=== PATIENT | female | born 1965 | race Caucasian/White ===

== ENCOUNTER 2017-08-24 17:35 | Emergency (ER) | payer BC ==
--- NOTE | 2017-08-24 19:02 | UC ---
FLU HPI - HPI Summary HPI Summary: fevers, chills, cough body aches - History of Current Complaint Stated Complaint: FEVER, ACHES, COUGH Time Seen by Provider: 08/24/17 18:56 Hx Obtained From: Patient Hx Last Menstrual Period: 09/29/15 ?: No Onset/Duration: Sudden Onset, Lasting Days - 1, Still Present Severity Currently: Moderate Severity Initially: Moderate Associated Signs & Symptoms: Positive: Fever, Myalgia, Cough, Headache - Allergy/Home Medications Allergies/Adverse Reactions: Allergies Allergy/AdvReac Type Severity Reaction Status Date / Time Erythromycin Allergy Unknown Verified 08/24/17 18:54 [Erythromycin] Reaction Details Home Medications: Home Medications Acetaminophen TAB* [Tylenol TAB*] 650 mg PO Q4H PRN 08/24/17 [History Confirmed 08/24/17] Albuterol HFA INHALER* [Ventolin HFA Inhaler*] 2 puff INH Q6H PRN 08/24/17 [ History Confirmed 08/24/17] Amlodipine Besylate [Norvasc 2.5 mg tab] 2.5 mg PO DAILY 08/24/17 [History Confirmed 08/24/17] PMH/Surg Hx/FS Hx/Imm Hx Previously Healthy: No Cardiovascular History: Hypertension Psychological History: Depression - Surgical History Surgical History: Yes Surgery Procedure, Year, and Place: C-Sections, 1991 1995. Right Fallopian Tube Removed, 1993 - Family History Known Family History: Positive: None - Social History Occupation: Employed Full-time Lives: With Family Alcohol Use: 3-4 drinks once a week Substance Use Type: None Smoking Status (MU): Never Smoked Tobacco - Immunization History Most Recent Influenza Vaccination: 04/13/14 Most Recent Tetanus Shot: 04/21/14 Review of Systems Constitutional: Fever, Chills, Fatigue Skin: Negative Eyes: Negative ENT: Ear Ache, Nasal Discharge Respiratory: Cough Cardiovascular: Negative Gastrointestinal: Negative Genitourinary: Negative Motor: Negative Neurovascular: Negative Musculoskeletal: Arthralgia, Myalgia Neurological: Negative Psychological: Negative Is Patient Immunocompromised?: No All Other Systems Reviewed And Are Negative: Yes Physical Exam Triage Information Reviewed: Yes Appearance: Well-Nourished, Ill-Appearing - mild, Pain Distress - mild Vital Signs Reviewed: Yes Eye Exam: Normal Eyes: Positive: Conjunctiva Clear ENT Exam: Normal ENT: Positive: Normal ENT inspection, Hearing grossly normal, Pharynx normal, TMs normal, Uvula midline. Negative: Nasal congestion, Nasal drainage, Tonsillar swelling, Tonsillar exudate, Trismus, Muffled voice, Hoarse voice, Sinus tenderness Dental Exam: Normal Neck exam: Normal Neck: Positive: Supple, Nontender, No Lymphadenopathy Respiratory Exam: Normal Respiratory: Positive: Chest non-tender, Lungs clear, Normal breath sounds, No respiratory distress, No accessory muscle use Cardiovascular Exam: Normal Cardiovascular: Positive: RRR, No Murmur, Pulses Normal, Brisk Capillary Refill Abdominal Exam: Normal Abdomen Description: Positive: Nontender, No Organomegaly, Soft. Negative: CVA Tenderness (R), CVA Tenderness (L) Bowel Sounds: Positive: Present Musculoskeletal Exam: Normal Musculoskeletal: Positive: Strength Intact, ROM Intact, No Edema Neurological Exam: Normal Neurological: Positive: Alert, Muscle Tone Normal Psychological Exam: Normal Psychological: Positive: Normal Response To Family, Age Appropriate Behavior Skin Exam: Normal Diagnostics - Radiology No standard instances Xray Interpretation: No Acute Changes Radiology Interpretation Completed By: ED Physician, Radiologist - EKG Cardiac Rate: Tachycardia Cardiac Rhythm: Sinus: Normal Ectopy: PVCs - 1 ST Segment: Normal Flu Course/Dx - Course Course Of Treatment: rest increase fluids, tylenol, ibuprofen follow with pcp, to ed should symptoms worsen - Differential Dx/Diagnosis Provider Diagnoses: Viral syndrome Discharge - Discharge Plan Condition: Stable Disposition: HOME Prescriptions: Benzonatate CAP* [Tessalon 100 MG CAP*] 100 - 200 mg PO TID PRN #40 cap PRN Reason: Cough guaiFENesin/CODIEN 100MG-10MG* [Robitussin AC 100Mg-10Mg*] 5 - 10 ml PO Q4H PRN #120 udc MDD 40 PRN Reason: cough Patient Education Materials: Viral Syndrome (ED), Hypertension (ED), Acute Cough (ED) Forms: *Work Release Referrals: Oneida Zabala MD [Primary Care Provider] - 1 Week
--- NOTE | 2017-08-24 19:40 | RAD ---
HISTORY: Cough, fever, shortness of breath, tachycardia COMPARISONS: April 28, 2016 VIEWS: 4: Frontal dual-energy and lateral views of the chest. FINDINGS: CARDIOMEDIASTINAL SILHOUETTE: The cardiomediastinal silhouette is normal. ELOISA: The eloisa are normal. PLEURA: The costophrenic angles are sharp. No pleural abnormalities are noted. LUNG PARENCHYMA: The lungs are clear. ABDOMEN: The upper abdomen is clear. There is no subphrenic gas. BONES AND SOFT TISSUES: Degenerative changes are noted. OTHER: None. IMPRESSION: NO ACTIVE CARDIOPULMONARY DISEASE.
[2017-08-24 19:44] VITALS: BP 148/97
== END 2017-08-24 20:01 | disposition home or self-care (01) ==
LOC: UCCORT 17:35
DX: B34.9 Viral infection, unspecified (principal); R00.0 Tachycardia, unspecified; I10 Essential (primary) hypertension; F32.9 Major depressive disorder, single episode, unspecified; Z88.1 Allergy status to other antibiotic agents
CPT/HCPCS: 71046; 87502; 93005; 99212; G0463

== ENCOUNTER 2018-08-05 15:13 | Emergency (ER) | payer BC ==
[2018-08-05 15:57] VITALS: BP 165/89
--- NOTE | 2018-08-05 16:08 | UC ---
Eye Complaint HPI - HPI Summary HPI Summary: 53-year-old woman comes in with chief complaint of bilateral eye irritation and discharge and redness. Patient woke up this morning. She has had some upper respiratory tract infection symptoms for several days. He was also playing with her dogs last evening. She does not wear contacts or glasses. Denies any concern of any foreign body. Has not been welding. Cool compresses decrease the irritation. The discharge is white/yellow and her sclera are injected. - History of Current Complaint Chief Complaint: UCEye Stated Complaint: BILATERAL EYE COMPLAINT Time Seen by Provider: 08/05/18 16:01 Hx Last Menstrual Period: 09/29/15 Pain Intensity: 0 - Allergies/Home Medications Allergies/Adverse Reactions: Allergies Allergy/AdvReac Type Severity Reaction Status Date / Time erythromycin base Allergy Nausea And Verified 08/05/18 15:55 Vomiting PMH/Surg Hx/FS Hx/Imm Hx Previously Healthy: Yes Cardiovascular History: Hypertension Respiratory History: Asthma - Surgical History Surgical History: Yes Surgery Procedure, Year, and Place: C-Sections, 1991 1995. Right Fallopian Tube Removed, 1993 - Family History Known Family History: Positive: None - Social History Alcohol Use: Occasionally Substance Use Type: None Smoking Status (MU): Never Smoked Tobacco - Immunization History Most Recent Influenza Vaccination: 04/13/14 Most Recent Tetanus Shot: 04/21/14 Review of Systems All Other Systems Reviewed And Are Negative: Yes Constitutional: Positive: Negative Skin: Positive: Negative Eyes: Positive: Drainage, Eye Redness ENT: Positive: Nasal Discharge, Sinus Congestion Respiratory: Positive: Negative Cardiovascular: Positive: Negative Gastrointestinal: Positive: Negative Motor: Positive: Negative Neurovascular: Positive: Negative Musculoskeletal: Positive: Negative Neurological: Positive: Negative Psychological: Positive: Negative Is Patient Immunocompromised?: No Physical Exam Triage Information Reviewed: Yes Appearance: Well-Appearing, No Pain Distress, Well-Nourished Vital Signs: Initial Vital Signs Temp 98.2 F 08/05/18 15:56 Pulse 102 08/05/18 15:56 Resp 16 08/05/18 15:56 BP 165/89 08/05/18 15:56 Pulse Ox 100 08/05/18 15:56 Vital Signs Reviewed: Yes Eyes: Positive: Conjunctiva Inflamed, Discharge ENT: Positive: Pharynx normal, Nasal drainage, TMs normal Neck exam: Normal Neck: Positive: Supple Respiratory: Positive: Lungs clear, Normal breath sounds, No respiratory distress Cardiovascular: Positive: RRR Musculoskeletal Exam: Normal Musculoskeletal: Positive: Strength Intact, ROM Intact Neurological Exam: Normal Neurological: Positive: Alert, Muscle Tone Normal Psychological Exam: Normal Psychological: Positive: Normal Response To Family, Age Appropriate Behavior Skin Exam: Normal Eye Complaint Course/Dx - Differential Dx/Diagnosis Provider Diagnosis: Conjunctivitis Discharge - Sign-Out/Discharge Documenting (check all that apply): Patient Departure All imaging exams completed and their final reports reviewed: No Studies - Discharge Plan Condition: Stable Disposition: HOME Prescriptions: Tobramycin 0.3% OPHTH.FANY* 1 drop BOTH EYES Q4H #1 btl Patient Education Materials: Conjunctivitis (ED) Referrals: Oneida Zabala MD [Primary Care Provider] - Additional Instructions: FOLLOW UP WITH OPHTHALMOLOGY IF NOT COMPLETELY IMPROVED. GET RECHECKED FOR ANY WORSENING OF YOUR CONDITION OR QUESTIONS OR CONCERNS. - Billing Disposition and Condition Condition: STABLE Disposition: Home
== END 2018-08-05 16:13 | disposition home or self-care (01) ==
LOC: UCCORT 15:13
DX: H10.9 Unspecified conjunctivitis (principal); I10 Essential (primary) hypertension; Z88.1 Allergy status to other antibiotic agents
CPT/HCPCS: 99212; G0463

== ENCOUNTER 2018-09-14 10:30 | Emergency (ER) | payer BC ==
[2018-09-14 11:01] VITALS: BP 158/108
--- NOTE | 2018-09-14 11:22 | UC ---
Respiratory Complaint HPI - HPI Summary HPI Summary: Ms. Conroy has had about 3 days of sore throat, cough and congestion. Her ears itch a little bit. She's not sure if she's had any fevers. She works at a [employer] [place] [employer] wants to know if she has influenza. She thinks she more likely has strep throat. - History of Current Complaint Chief Complaint: UCRespiratory Stated Complaint: FEVER,ST,COUGH Time Seen by Provider: 09/14/18 11:15 Hx Obtained From: Patient Hx Last Menstrual Period: 09/29/15 Timing: Constant Severity Initially: Mild Severity Currently: Moderate Pain Intensity: 6 Character: Cough: Nonproductive Associated Signs And Symptoms: Positive: Nasal Congestion - sore throat - Allergies/Home Medications Allergies/Adverse Reactions: Allergies Allergy/AdvReac Type Severity Reaction Status Date / Time erythromycin base Allergy Nausea And Verified 09/14/18 10:57 Vomiting PMH/Surg Hx/FS Hx/Imm Hx Previously Healthy: Yes - Surgical History Surgical History: Yes Surgery Procedure, Year, and Place: C-Sections, 1991 1995. Right Fallopian Tube Removed, 1993 - Family History Known Family History: Positive: None - Social History Alcohol Use: Occasionally Substance Use Type: None Smoking Status (MU): Never Smoked Tobacco - Immunization History Most Recent Influenza Vaccination: 04/13/14 Most Recent Tetanus Shot: 04/21/14 Review of Systems All Other Systems Reviewed And Are Negative: Yes Constitutional: Positive: Negative Skin: Positive: Negative ENT: Positive: Sore Throat, Nasal Discharge Respiratory: Positive: Cough Cardiovascular: Positive: Negative Gastrointestinal: Positive: Negative Neurological: Positive: Negative Physical Exam - Summary Physical Exam Summary: She was nontoxic in appearance with stable vital signs. Vital Signs: Initial Vital Signs Temp 97.4 F 09/14/18 10:57 Pulse 110 09/14/18 10:57 Resp 16 09/14/18 10:57 BP 158/108 09/14/18 10:57 Pulse Ox 99 09/14/18 10:57 Vital Signs Reviewed: Yes Eye Exam: Normal ENT: Positive: Pharyngeal erythema, Nasal congestion Neck exam: Normal Neck: Positive: Supple, Nontender, No Lymphadenopathy Respiratory Exam: Normal Cardiovascular Exam: Normal UC Diagnostic Evaluation - Laboratory O2 Sat by Pulse Oximetry: 99 Respiratory Course/Dx - Course Course Of Treatment: Her strep test returned positive and I will treat her accordingly with Pen-Vee K. - Differential Dx/Diagnosis Provider Diagnosis: Strep pharyngitis Discharge - Sign-Out/Discharge Documenting (check all that apply): Patient Departure All imaging exams completed and their final reports reviewed: No Studies - Discharge Plan Condition: Stable Disposition: HOME Patient Education Materials: Strep Throat (ED) Referrals: Oneida Zabala MD [Primary Care Provider] - - Billing Disposition and Condition Condition: STABLE Disposition: Home
[2018-09-14 11:37] LABS: Influenza A Molecular NEGATIVE (Negative); Influenza B Molecular NEGATIVE (Negative)
== END 2018-09-14 12:00 | disposition home or self-care (01) ==
LOC: UCCORT 10:30
DX: J02.0 Streptococcal pharyngitis (principal); R09.81 Nasal congestion; Z88.1 Allergy status to other antibiotic agents
CPT/HCPCS: 87651; 99212; G0463

== ENCOUNTER 2018-09-26 10:08 | Emergency (ER) | payer BC ==
[2018-09-26 12:01] VITALS: BP 161/100
--- NOTE | 2018-09-26 12:42 | UC ---
UC General HPI - HPI Summary HPI Summary: PT C/O A SORE THROAT AND CONGESTED COUGH. PAIN IN THROAT MAKING SPEECH DIFFICULT. SEEN HERE ON 09/14/18, DX STREP THROAT AND TX WITH PCN gid X 10 DAYS. PT NOTES SHE IMPROVED BUT IT DIDN'T RESOLVE COMPLETELY. + HX ASTHMA. USING RESCUE MDI. - History of Current Complaint Chief Complaint: UCRespiratory Stated Complaint: CONGESTION,SORE THROAT,COUGH Time Seen by Provider: 09/26/18 12:29 Hx Obtained From: Patient Hx Last Menstrual Period: 09/29/15 Onset/Duration: Gradual Onset Timing: Constant Pain Intensity: 9 Associated Signs & Symptoms: Positive: Cough. Negative: Fever, SOB - Allergy/Home Medications Allergies/Adverse Reactions: Allergies Allergy/AdvReac Type Severity Reaction Status Date / Time erythromycin base Allergy Nausea And Verified 09/26/18 11:59 Vomiting Home Medications: Home Medications Acetaminophen TAB* [Tylenol TAB*] 650 mg PO Q6H PRN 09/26/18 [History Confirmed 09/26/18] PMH/Surg Hx/FS Hx/Imm Hx Cardiovascular History: Hypertension Respiratory History: Asthma Psychological History: Depression - Surgical History Surgical History: Yes Surgery Procedure, Year, and Place: C-Sections, 1991 1995. Right Fallopian Tube Removed, 1993 - Family History Known Family History: Positive: None - Social History Occupation: Employed Full-time Alcohol Use: Occasionally Substance Use Type: None Smoking Status (MU): Never Smoked Tobacco - Immunization History Most Recent Influenza Vaccination: 04/13/14 Most Recent Tetanus Shot: 04/21/14 Vaccination Up to Date: Yes Review of Systems All Other Systems Reviewed And Are Negative: Yes Constitutional: Positive: Fatigue ENT: Positive: Sore Throat Respiratory: Positive: Cough Physical Exam Triage Information Reviewed: Yes Appearance: Well-Appearing Vital Signs: Initial Vital Signs Temp 97.9 F 09/26/18 11:57 Pulse 105 09/26/18 11:57 Resp 17 09/26/18 11:57 BP 161/100 09/26/18 11:57 Pulse Ox 100 09/26/18 11:57 Vital Signs Reviewed: Yes Eyes: Positive: Conjunctiva Clear ENT: Positive: Pharyngeal erythema - with mild to moderate swelling. speech is fluent and pt is swallowing secretions., TMs normal, Uvula midline. Negative: Nasal congestion, Nasal drainage, Trismus, Muffled voice, Hoarse voice Neck: Positive: Supple, Nontender, Enlarged Nodes @ - peritonsilar nodes Respiratory: Positive: Lungs clear, No respiratory distress, Decreased breath sounds, Other: - Bronchospastic ocngested cough. Cardiovascular: Positive: RRR Abdomen Description: Positive: Nontender, No Organomegaly, Soft Bowel Sounds: Positive: Present Musculoskeletal: Positive: ROM Intact Neurological: Positive: Alert Psychological: Positive: Age Appropriate Behavior Skin Exam: Normal Skin: Negative: Rashes Course/Dx - Course Course Of Treatment: Rapid strep=positive - Differential Dx - Multi-Symptom Differential Diagnoses: Other - no concern for peritonsil or retropharyngeal abscess. Hx HTN, tx plus ill but will have recheck on f/u. - Diagnoses Provider Diagnosis: Strep pharyngitis Discharge - Sign-Out/Discharge Documenting (check all that apply): Patient Departure All imaging exams completed and their final reports reviewed: No Studies - Discharge Plan Condition: Stable Disposition: HOME Prescriptions: Amoxicillin/Clavulanate TAB* [Augmentin TAB 875*] 875 mg PO BID 10 Days #20 tab predniSONE [Prednisone 20 MG TAB] 40 mg PO DAILY 5 Days #10 tablet Patient Education Materials: Strep Throat (DC) Forms: *Work Release Referrals: Oneida Zabala MD [Primary Care Provider] - 7 Days Additional Instructions: USE YOUR RESCUE INHALER 2 PUFFS EVERY 6 HOURS. START A PROBIOTIC DAILY WHILE ON THE ANTIBIOTIC. - Billing Disposition and Condition Condition: STABLE Disposition: Home
== END 2018-09-26 12:49 | disposition home or self-care (01) ==
LOC: UCCORT 10:08
DX: J02.0 Streptococcal pharyngitis (principal); I10 Essential (primary) hypertension; J45.909 Unspecified asthma, uncomplicated; Z88.1 Allergy status to other antibiotic agents
CPT/HCPCS: 87651; 99212; G0463